=== PATIENT | male | born 1985 | race Native Hawaiian/Other Pacific Islander ===

== ENCOUNTER 2016-09-27 23:49 | Emergency (ER) | payer SELFPAY ==
[2016-09-28 02:00] LABS: Basophils % (Auto) 0.6 % (0.0-1.8); Eosinophils % (Auto) 2.6 % (0.0-4.3); Hematocrit 45.5 % (35.5-45.6); Hemoglobin 15.3 gm/dl (11.8-15.2); Mean Corpuscular HGB Conc 34 % (32-34); Mean Corpuscular Hemoglobin 30 pg (28-32); Mean Corpuscular Volume 89 fl (84-94); Platelet Count 219 K/mm3 (140-440); Red Blood Count 5.14 M/mm3 (3.65-5.03); Red Cell Distribution Width 13.3 % (13.2-15.2); White Blood Count 6.2 K/mm3 (4.5-11.0)
[2016-09-28 02:16] LABS: Anion Gap 21 mmol/L; BUN/Creatinine Ratio 18.57; Blood Urea Nitrogen 13 mg/dL (9-20); Calcium 8.5 mg/dL (8.4-10.2); Carbon Dioxide 22 mmol/L (22-30); Chloride 100.2 mmol/L (98-107); Glucose 90 mg/dL (75-100); Potassium 3.7 mmol/L (3.6-5.0); Sodium 139 mmol/L (137-145)
[2016-09-28 02:49] LABS: INR 0.97 (0.87-1.13); Partial Thromboplastin Time 25.5 Sec. (24.2-36.6)
--- NOTE | 2016-09-28 07:45 | XRay Report ---
ROUTINE CHEST, TWO VIEWS: HISTORY: chest pain. The trachea, heart, mediastinal contour, lung pierre and bony thorax are unremarkable. IMPRESSION: Unremarkable chest x-ray.
[2016-09-28] MEDS ORDERED: TORADOL IV ONE (08:12)
--- NOTE | 2016-09-28 08:13 | Emergency Department Report ---
ED General Adult HPI - General Chief complaint: Chest Pain Stated complaint: CHEST PAIN Time Seen by Provider: 09/28/16 07:09 Source: patient, family, RN notes reviewed Mode of arrival: Ambulatory Limitations: Language Barrier - History of Present Illness Initial comments: access control officer: [id number] This is a 31-year-old male. He is previously unknown to me. He does not have a primary care doctor. He denies long-term medical conditions. The patient presents to the ER with left upper quadrant abdominal pain/left lower thoracic chest pain for 3 weeks. The pain is sharp and achy. It increases with twisting, range of motion, palpation. There is no leg pain. There is no leg swelling. No recent trips greater than 4 hours. No recent hospital admissions. The patient reports that he does a lot of heavy lifting at work. The patient also reports left-sided paracervical neck pain that radiates down the left upper extremity. This is been going on for the past week or so. There is no weakness. There is no bladder or bowel retention or incontinence. There is no severe shortness of breath, vomiting or diaphoresis. -: Gradual Location: abdomen, left, upper extremity Radiation: extremity Severity scale (0 -10): 6 Quality: burning, aching Consistency: intermittent Improves with: rest Worsens with: movement Associated Symptoms: chest pain - Related Data Previous Rx's Medication Instructions Recorded Last Taken Type Ketorolac [Toradol] 10 mg PO Q6H PRN #20 tablet 09/28/16 Unknown Rx Allergies Allergy/AdvReac Type Severity Reaction Status Date / Time No Known Allergies Allergy Verified 09/28/16 00:50 ED Review of Systems ROS: Stated complaint: CHEST PAIN Other details as noted in HPI Constitutional: no symptoms reported Eyes: as per HPI ENT: as per HPI, throat pain Respiratory: no symptoms reported Cardiovascular: chest pain Gastrointestinal: as per HPI Genitourinary: as per HPI Musculoskeletal: as per HPI, myalgia Skin: as per HPI Neurological: as per HPI, paresthesias Psychiatric: as per HPI Hematological/Lymphatic: as per HPI ED Past Medical Hx - Past Medical History Previous Medical History?: No - Surgical History Past Surgical History?: No - Social History Smoking Status: Never Smoker Substance Use Type: Alcohol - Medications Home Medications: Home Medications Medication Instructions Recorded Confirmed Last Taken Type Ketorolac [Toradol] 10 mg PO Q6H PRN #20 tablet 09/28/16 Unknown Rx ED Physical Exam - General Limitations: Language Barrier General appearance: alert, in no apparent distress - Head Head exam: Present: atraumatic, normocephalic - Eye Eye exam: Present: normal appearance, EOMI. Absent: nystagmus - ENT ENT exam: Present: normal exam, normal orophraynx, mucous membranes moist, normal external ear exam - Neck Neck exam: Present: normal inspection, full ROM. Absent: tenderness, meningismus - Respiratory Respiratory exam: Present: normal lung sounds bilaterally, chest wall tenderness. Absent: respiratory distress, wheezes, rales, rhonchi, stridor, decreased breath sounds - Cardiovascular Cardiovascular Exam: Present: regular rate, normal rhythm, normal heart sounds. Absent: bradycardia, tachycardia, irregular rhythm, systolic murmur, diastolic murmur, rubs, gallop - GI/Abdominal GI/Abdominal exam: Present: soft, normal bowel sounds. Absent: distended, tenderness, guarding, rebound, rigid, pulsatile mass - Rectal Rectal exam: Present: deferred - Extremities Exam Extremities exam: Present: normal inspection, full ROM, normal capillary refill. Absent: tenderness, pedal edema, joint swelling, calf tenderness - Back Exam Back exam: Present: normal inspection, full ROM. Absent: tenderness, CVA tenderness (R), CVA tenderness (L), muscle spasm, paraspinal tenderness, vertebral tenderness - Neurological Exam Neurological exam: Present: alert, oriented X3, normal gait (sensation intact to light touch, pinprick, proprioception in 4 extremities.), other (Extraocular movements intact. Tongue midline. No facial droop. Facial sensation intact to light touch in the V1, V2, V3 distribution bilaterally. 5 and 5 strength in 4 extremities.. Sensation is intact to light touch in 4 extremities.). Absent : motor sensory deficit - Psychiatric Psychiatric exam: Present: normal affect, normal mood - Skin Skin exam: Present: warm, dry, intact, normal color. Absent: rash ED Course Vital Signs 09/28/16 09/28/16 09/28/16 00:10 06:55 06:56 Temperature 98.1 F Pulse Rate 75 64 61 Respiratory 18 16 18 Rate Blood Pressure 119/81 Blood Pressure 130/84 [Right] O2 Sat by Pulse 98 100 97 Oximetry 09/28/16 09/28/1609/28/17 06:58 07:00 07:02 Temperature Pulse Rate 63 58 L 65 Respiratory 9 L 17 15 Rate Blood Pressure 119/81 117/79 117/79 Blood Pressure [Right] O2 Sat by Pulse 97 96 98 Oximetry 09/28/16 09/28/16 09/28/16 07:04 07:11 07:12 Temperature Pulse Rate 61 63 63 Respiratory 21 14 Rate Blood Pressure 117/79 117/79 117/79 Blood Pressure [Right] O2 Sat by Pulse 98 98 Oximetry 09/28/16 09/28/16 09/28/16 07:14 07:16 07:18 Temperature Pulse Rate 59 L 58 L 60 Respiratory 18 12 15 Rate Blood Pressure 118/77 118/77 118/77 Blood Pressure [Right] O2 Sat by Pulse 97 97 98 Oximetry 09/28/16 09/28/16 09/28/16 07:20 07:22 07:24 Temperature Pulse Rate 57 L 60 58 L Respiratory 16 13 16 Rate Blood Pressure 118/77 118/77 118/77 Blood Pressure [Right] O2 Sat by Pulse 97 98 98 Oximetry 09/28/16 09/28/16 09/28/16 07:26 07:28 07:30 Temperature Pulse Rate 57 L 54 L 59 L Respiratory 17 16 18 Rate Blood Pressure 118/77 118/77 110/76 Blood Pressure [Right] O2 Sat by Pulse 98 98 97 Oximetry 09/28/16 09/28/16 09/28/16 07:32 07:34 07:36 Temperature Pulse Rate 61 58 L 73 Respiratory 8 L 13 18 Rate Blood Pressure 110/76 110/76 110/76 Blood Pressure [Right] O2 Sat by Pulse 98 98 98 Oximetry 09/28/16 09/28/16 09/28/16 07:38 07:40 08:00 Temperature Pulse Rate 62 55 L 68 Respiratory 16 15 20 Rate Blood Pressure 110/76 110/76 117/79 Blood Pressure [Right] O2 Sat by Pulse 97 97 99 Oximetry 09/28/16 08:18 Temperature Pulse Rate Respiratory 18 Rate Blood Pressure Blood Pressure [Right] O2 Sat by Pulse Oximetry - Reevaluation(s) Reevaluation #1: 09/28/16 09:00 Differential diagnosis: Costochondritis, muscular wall sprain/strain, cervical radiculopathy, pneumonia, acute coronary syndrome Assessment and plan: 31-year-old male with 3 weeks of abdominal and chest wall discomfort, no pulmonary embolus or DVT risk factors, low risk by well's criteria score, low risk by NELA score, low risk by heart score, perc negative. Troponin is negative multiple times. EKG unremarkable and within normal limits multiple times. The patient endorses unlimited exercise tolerance had reproducible chest wall tenderness, and his physical exam did not support epidural compression syndrome at this time. He felt improved after symptomatic therapy. He is instructed to rest and avoid heavy lifting, and to follow-up with a primary care doctor. This was explained using a access control officer, the patient and friend/family/practicing md anesthesiologist verbalized understanding. He will be discharged at this time. His chest x-ray is unremarkable. ED Medical Decision Making - Lab Data Result diagrams: 09/28/16 01:11 09/28/16 01:11 Vital Signs 09/28/16 09/28/16 09/28/16 00:10 06:55 06:56 Temperature 98.1 F Pulse Rate 75 64 61 Respiratory 18 16 18 Rate Blood Pressure 119/81 Blood Pressure 130/84 [Right] O2 Sat by Pulse 98 100 97 Oximetry 09/28/16 09/28/16 09/28/16 06:58 07:00 07:02 Temperature Pulse Rate 63 58 L 65 Respiratory 9 L 17 15 Rate Blood Pressure 119/81 117/79 117/79 Blood Pressure [Right] O2 Sat by Pulse 97 96 98 Oximetry 09/28/16 09/28/16 09/28/16 07:04 07:11 07:12 Temperature Pulse Rate 61 63 63 Respiratory 21 14 Rate Blood Pressure 117/79 117/79 117/79 Blood Pressure [Right] O2 Sat by Pulse 98 98 Oximetry 09/28/16 09/28/16 09/28/16 07:14 07:16 07:18 Temperature Pulse Rate 59 L 58 L 60 Respiratory 18 12 15 Rate Blood Pressure 118/77 118/77 118/77 Blood Pressure [Right] O2 Sat by Pulse 97 97 98 Oximetry 09/28/16 09/28/16 09/28/16 07:20 07:22 07:24 Temperature Pulse Rate 57 L 60 58 L Respiratory 16 13 16 Rate Blood Pressure 118/77 118/77 118/77 Blood Pressure [Right] O2 Sat by Pulse 97 98 98 Oximetry 09/28/16 09/28/1609/28/17 07:26 07:28 07:30 Temperature Pulse Rate 57 L 54 L 59 L Respiratory 17 16 18 Rate Blood Pressure 118/77 118/77 110/76 Blood Pressure [Right] O2 Sat by Pulse 98 98 97 Oximetry 09/28/16 09/28/16 09/28/16 07:32 07:34 07:36 Temperature Pulse Rate 61 58 L 73 Respiratory 8 L 13 18 Rate Blood Pressure 110/76 110/76 110/76 Blood Pressure [Right] O2 Sat by Pulse 98 98 98 Oximetry 09/28/16 09/28/16 07:38 08:18 Temperature Pulse Rate 62 Respiratory 16 18 Rate Blood Pressure 110/76 Blood Pressure [Right] O2 Sat by Pulse 97 Oximetry Lab Results 09/28/16 09/28/16 09/28/16 Range/Units 01:11 01:11 01:11 WBC 6.2 (4.5-11.0) K/mm3 RBC 5.14 H (3.65-5.03) M/mm3 Hgb 15.3 H (11.8-15.2) gm/dl Hct 45.5 (35.5-45.6) % MCV 89 (84-94) fl MCH 30 (28-32) pg MCHC 34 (32-34) % RDW 13.3 (13.2-15.2) % Plt Count 219 (140-440) K/mm3 Lymph % (Auto) 24.2 (13.4-35.0) % [place] % (Auto) 12.1 H (0.0-7.3) % Eos % (Auto) 2.6 (0.0-4.3) % Baso % (Auto) 0.6 (0.0-1.8) % Lymph # 1.5 (1.2-5.4) K/mm3 [place] # 0.8 (0.0-0.8) K/mm3 Eos # 0.2 (0.0-0.4) K/mm3 Baso # 0.0 (0.0-0.1) K/mm3 Seg Neutrophils % 60.5 (40.0-70.0) % Seg Neutrophils # 3.8 (1.8-7.7) K/mm3 PT 12.8 (12.2-14.9) Sec. INR 0.97 (0.87-1.13) APTT 25.5 (24.2-36.6) Sec. Sodium 139 (137-145) mmol/L Potassium 3.7 (3.6-5.0) mmol/L Chloride 100.2 (98-107) mmol/L Carbon Dioxide 22 (22-30) mmol/L Anion Gap 21 mmol/L BUN 13 (9-20) mg/dL Creatinine 0.7 L (0.8-1.5) mg/dL Estimated GFR > 60 ml/min BUN/Creatinine Ratio 18.57 % Glucose 90 (75-100) mg/dL Calcium 8.5 (8.4-10.2) mg/dL Troponin T < 0.010 (0.00-0.029) ng/mL 09/28/16 09/28/16 Range/Units 03:49 06:51 WBC (4.5-11.0) K/mm3 RBC (3.65-5.03) M/mm3 Hgb (11.8-15.2) gm/dl Hct (35.5-45.6) % MCV (84-94) fl MCH (28-32) pg MCHC (32-34) % RDW (13.2-15.2) % Plt Count (140-440) K/mm3 Lymph % (Auto) (13.4-35.0) % [place] % (Auto) (0.0-7.3) % Eos % (Auto) (0.0-4.3) % Baso % (Auto) (0.0-1.8) % Lymph # (1.2-5.4) K/mm3 [place] # (0.0-0.8) K/mm3 Eos # (0.0-0.4) K/mm3 Baso # (0.0-0.1) K/mm3 Seg Neutrophils % (40.0-70.0) % Seg Neutrophils # (1.8-7.7) K/mm3 PT (12.2-14.9) Sec. INR (0.87-1.13) APTT (24.2-36.6) Sec. Sodium (137-145) mmol/L Potassium (3.6-5.0) mmol/L Chloride (98-107) mmol/L Carbon Dioxide (22-30) mmol/L Anion Gap mmol/L BUN (9-20) mg/dL Creatinine (0.8-1.5) mg/dL Estimated GFR ml/min BUN/Creatinine Ratio % Glucose (75-100) mg/dL Calcium (8.4-10.2) mg/dL Troponin T < 0.010 < 0.010 (0.00-0.029) ng/mL - EKG Data -: EKG Interpreted by Me EKG shows normal: sinus rhythm, axis, intervals, QRS complexes, ST-T waves Rate: normal - EKG Data When compared to previous EKG there are: previous EKG unavailable 09/28/16 09:02 EKG #1 demonstrates normal sinus, 71 beats per minute, normal intervals, normal axis, borderline left ventricular hypertrophy. EKG #2 demonstrates sinus bradycardia, 58 bpm, normal intervals, normal axis, left ventricular hypertrophy, not morphologically consistent with STEMI. - Radiology Data Radiology results: report reviewed, image reviewed X-ray the chest is negative for acute disease Critical care attestation.: If time is entered above; I have spent that time in minutes in the direct care of this critically ill patient, excluding procedure time. ED Disposition Clinical Impression: Chest wall pain Disposition: DISCHARGED TO HOME OR SELFCARE Is pt being admited?: No Does the pt Need Aspirin: No Condition: Stable Instructions: Chest Pain (ED), Costochondritis (ED) Additional Instructions: Rest and avoid heavy lifting. Avoid strenuous physical activity. Take pain medication as directed. Follow up with a primary care doctor within the next week to [address] Rudi Gonzales is a local primary care doctor. The [facility] is a local medical clinic. Return to the ER right away with new pain, worsened pain, migration of pain, extremity weakness, extremity numbness, bladder or bowel retention or incontinence, chest pain or shortness of breath. Descanse y evite levantar objetos pesados. Evite la actividad fsica extenuante. [place] medicamentos para el dolor segn las indicaciones. Seguimiento con un mdico de atencin primaria dentro de la prxima semana a [address] Rudi Gonzales es un mdico local de atencin primaria. La clnica del lado arlene es viola clnica mdica local. Regrese al ER de inmediato con dolor nuevo, dolor empeorado, migracin del dolor , debilidad de las extremidades, entumecimiento de las extremidades, retencin de la vejiga o del intestino o incontinencia, dolor en el pecho o dificultad para respirar. Prescriptions: Ketorolac [Toradol] 10 mg PO Q6H PRN #20 tablet PRN Reason: Pain Referrals: PRIMARY CAREMD [Primary Care Provider] - 3-5 Days RUDI GONZALES MD [Staff Physician] - 3-5 Days [facility] [Provider Group] - 3-5 Days Forms: Work/School Release Form(ED)
[2016-09-28 09:08] VITALS: BP 117/79
== END 2016-09-28 09:10 | disposition home or self-care (01) ==
LOC: ED 23:49
DX: R07.89 Other chest pain (principal)
CPT/HCPCS: 36415; 71020; 80048; 84484; 85025; 85610; 85730; 93005; 93010; 96374; 99285; J1885